=== PATIENT | male | born 1980 | race Caucasian/White ===

== ENCOUNTER 2017-04-15 18:58 | Emergency (ER) | payer BC ==
[2017-04-15] MEDS ORDERED: TETRACAINE HCL 150 DROP BTL EACHEYE ONE (19:29)
[2017-04-15] MEDS ORDERED: TETRACAINE HCL 150 DROP BTL ONE (19:30)
[2017-04-15 20:06] VITALS: BP 120/72
[2017-04-15] MEDS ORDERED: oxyCODONE HCL/ACETAMINOPHEN 1 TAB TABLET PO ONE (20:06)
[2017-04-15] MEDS ORDERED: GENTAMICIN SULFATE 50 DROP BTL LEFTEYE ONE (20:06)
--- NOTE | 2017-04-15 20:07 | ERNOTE ---
ENT HPI Date of Service: 04/15/17 Presenting Symptoms: eye pain Time Seen by Provider: 04/15/17 19:32 Source: patient Exam Limitations: no limitations - Immun/Allergies/Home Medications Immunizations: IMMUNIZATION HX Immunizations Up to Date Yes History of Influenza Vaccine Yes Allergies/Adverse Reactions: Allergies Allergy/AdvReac Type Severity Reaction Status Date / Time No Known Allergies Allergy Verified 04/15/17 19:06 Home Medications: HOME MEDICATIONS Gentamicin Sulfate [Gentamicin 0.3% Ophthalmic Solution] 1 drop OP 5XD #1 btl [Last Taken Unknown] oxyCODONE HCL/ACETAMINOPHEN [Percocet 5 MG/325 MG] 1 tab PO Q4H PRN #5 tab 04/15 [Last Taken Unknown] - History of Present Illness Narrative: Pt. comes in with c/o L eye pain after getting sawdust in his eye this morning. Pt. use visine and artificial tears and it improved but then worsened this evening. Pt. states that his vision is blurred, but denies any double vision or headache. Review of Systems - Review of Systems Constitutional: Present: no symptoms reported. Absent: recent illness, fever, chills, weakness, fatigue, malaise EYE: Present: eye pain, blurred vision, tearing. Absent: eye discharge, double vision ENT: Present: no symptoms reported Respiratory: Present: no symptoms reported. Absent: shortness of breath, cough , wheezing Cardiology: Present: no symptoms reported. Absent: chest pain, palpitations, edema Gastrointestinal/Abdominal: Present: no symptoms reported. Absent: nausea, vomiting, diarrhea Genitourinary: Present: no symptoms reported. Absent: frequency, decreased urinary output Musculoskeletal: Present: no symptoms reported. Absent: back pain, joint pain Skin: Present: no symptoms reported. Absent: rash, change in hair/nails Neurological: Present: no symptoms reported. Absent: headache, dizziness/light- headedness, numbness, tingling All Other Systems: All systems neg except as marked - Patient's Past Medical History Patient History - Medical: No pertinent hx Patient History - Cardiac/Respiratory: No pertinent hx Patient History - Cancer: No Hx of Cancer Patient History - Surgical Procedures: Orthopedic Patient History - Other: None - Social History Living Situations: spouse Abuse History: No History of abuse Psych History: No pertinent hx Smoking Status: Never smoker Alcohol Use: rarely Drug Use: none - Immunizations Immunizations Up to Date: Yes History of Influenza Vaccine: Yes Physical Exam - Physical Exam General Appearance: Present: wd/wn, alert, no apparent distress Eye Exam: Normal inspection: right, PERRL: bilateral, EOMI: bilateral, Sclera injection: left, Eye drainage: left, Photophobia: left, Other: left - corneal abrasion L upper cornea Respiratory: Present: no respiratory distress, normal breath sounds, no accessory muscle use, chest nontender, lungs clear Cardiovascular/Chest: Present: regular rate, rhythm, no murmur, normal peripheral pulses Neurological Exam: Present: alert, oriented, normal mood/affect, no motor/ sensory deficits Skin Exam: Present: normal color, warm/dry. Absent: pallor, skin rash ED Progress - Date and Time Seen: Date and Time: 04/15/17 20:02 Pt. with normal vision test after tetracaine drops. - Vital Signs Patient's Vital Signs:: I have reviewed the patient's vital signs. Vital Signs: Vital Signs 04/15/17 19:03 Temperature 36.8 C Pulse Rate 66 Respiratory 16 Rate Blood Pressure 124/84 O2 Sat by Pulse 97 Oximetry - Progress/Reassessment Chief Complaint: Eye Injury/Trauma Departure Clinical Impression: Corneal abrasion, left Qualifiers: Encounter type: initial encounter Qualified Code(s): S05.02XA - Injury of conjunctiva and corneal abrasion without foreign body, left eye, initial encounter - Departure Disposition: Home self-care Condition: Good Instructions: Corneal Abrasion, [id number] Additional Instructions: Please follow up with fire captain in 2-3 days if no improvement. Prescriptions: Gentamicin Sulfate [Gentamicin 0.3% Ophthalmic Solution] 1 drop OP 5XD #1 btl oxyCODONE HCL/ACETAMINOPHEN [Percocet 5 MG/325 MG] 1 tab PO Q4H PRN #5 tab PRN Reason: Pain
[2017-04-15] MEDS ORDERED: oxyCODONE HCL/ACETAMINOPHEN 1 TAB TABLET ONE (20:08)
[2017-04-15] MEDS ORDERED: GENTAMICIN SULFATE 50 DROP BTL ONE (20:08)
== END 2017-04-15 20:16 | disposition home or self-care (01) ==
LOC: ER 18:58
DX: S05.02XA Injury of conjunctiva and corneal abrasion without foreign body, left eye, initial encounter (principal); W45.8XXA Other foreign body or object entering through skin, initial encounter